=== PATIENT | female | born 1985 | race Caucasian/White ===

== ENCOUNTER 2022-02-26 12:24 | Inpatient (IN) ==
[2022-02-26] MEDS ORDERED: LACTATED RINGER'S 1,000 ML IV PRN (13:07)
[2022-02-26] MEDS ORDERED: OXYTOCIN 30 UNITS/500 ML BAG IV PRN (13:07)
--- NOTE | 2022-02-26 13:11 | History & Physical Report ---
Date of Service February 26, 2022 Assessment & Plan (1) Supervision of elderly multigravida: Plan: spont labor, admit. PCN History of Present Illness Primary Care Provider: Elana Saavedra MD STEPHANIE Calculator Estimated Delivery Date Method Current WG Current Estimate 02/26/22 LMP (Certain) 39w 5d LMP: 05/22/21 : 6 Full term: 3 Premature: 0 Total Number of Induced Abortions: 0 Total Number of Spontaneous Abortions: 2 Ectopics: 0 Multiple births: 0 Number of Living Children: 3 and Delivery Plans Covid Vaccine #1 02/13/21 (Pfizer) Covid Vaccine #2 03/06/21 AMA *weekly NST's @ 36wks. GBS Positive Urine -treat in LD Flu shot 07/24/21 IOL 03/05 if needed Allergies Allergy/AdvReac Type Severity Reaction Status Date / Time No Known Allergies Allergy Verified 02/24/22 09:25 Home Medications Medication Instructions Recorded Confirmed Type prenat.vits,clinton,[id number] 1 tab PO DAILY 07/22/21 02/26/22 History Patient History Medical History (Updated 07/25/21 @ 16:00 by Delmy Armenta MD, FACOG) Missed No known health problems Surgical History (Updated 07/22/21 @ 11:02 by Marcia Hylton) History of wisdom tooth extraction Family History Father Drug abuse Alcohol abuse Hypertension Grandfather (Maternal) Myocardial infarction Grandfather (Paternal) Myocardial infarction Uncle Prostate cancer Other No family history of adverse response to anesthesia Denies family history of Ovarian cancer Breast cancer Colorectal cancer Social History (Updated 07/22/21 @ 10:59 by Marcia Hylton) Smoking Status: Never smoker Second Hand Exposure: No; Hx Alcohol Use: No Hx Substance Use: No Preferred Language: Indonesian Communication Ability: Effective Visual Impairment: No Limitations Body Piercer Required: No Beliefs That Will Affect Care: None marital status: marital status details: Haroon (41) [phone] Current Living Situation: Alone Current Living Situation Comment: [facility] [facility], 1 dog. current occupational status: unemployed current occupation: HOMEMAKER Feels Safe at Home: Yes Safety Concerns: Feels Safe At This Time Childhood Exposure to Second-Hand Smoke: No Dental Care, Regularly: Yes Physical Activity Frequency: Daily Assistive Devices: None Results & Data ([facility]) Vital Signs (Past 12 Hours) Vital Signs Temp Pulse Resp BP 02/26/22 13:01 77 125/84 02/26/22 12:47 80 140/83 02/26/22 12:41 97.7 F 20 Coding Level of Care Code None Diagnoses Supervision of elderly multigravida O09.529
[2022-02-26] MEDS ORDERED: PENICILLIN G POTASSIUM 6 MU in DEXTROSE 5% 250 ML IV STA (13:25)
[2022-02-26 13:26] LABS: Hematocrit (blood only) 37.5 % (37-47); Mean Corpuscular Hemoglobin 31.4 pg (25-34); Mean Corpuscular Hgb Conc 34.7 g/dL (32-36); Mean Corpuscular Volume 90.6 fL (80-100); Mean Platelet Volume 10.3 fL (7.4-10.4); Platelet Count 199 K/uL (130-400); RDW Standard Deviation 42.9 fL (36.4-46.3); Red Blood Count 4.14 M/uL (4.2-5.4); White Blood Count 10.16 K/uL (4.8-10.8)
[2022-02-26] MEDS ORDERED: PENICILLIN G POTASSIUM 3 MU in DEXTROSE 5% 100 ML IV PRN (16:07)
[2022-02-26] MEDS: OXYTOCIN 30 UNITS/500 ML BAG IV PRN ×2 (16:18→17:15)
[2022-02-26] MEDS ORDERED: ACETAMINOPHEN 325 MG TAB PO PRN (16:51)
[2022-02-26] MEDS ORDERED: bisacodyL 10 MG SUPP PR PRN (16:51)
[2022-02-26] MEDS ORDERED: BENZOCAINE 20% AER SPR 82.5 GM CAN EXT PRN (16:51)
[2022-02-26] MEDS ORDERED: HYDROCORTISONE ACETATE 25 MG SUPP PR PRN (16:51)
[2022-02-26] MEDS ORDERED: miSOPROStoL 200 MCG TAB ONE (17:35)
--- NOTE | 2022-02-26 17:42 | Delivery Summary ---
Vaginal Delivery Summary Date of Service February 26, 2022 Vaginal Delivery Summary Spontaneous vaginal delivery the patient delivered precipitously at delivering the head on her own nursing was in attendance as was diet but baby was born into the bed Betzaida Yi was able to help as well and once gloves were on I was able to assess baby cord was clamped. Fluid was clear baby was vigorous live vigorous female assessed for lacerations there were none placenta was removed with gentle traction IV Pitocin started She did have a hemorrhage of approximately an additional 300 cc Pitocin was increased and then rectal Cytotec was given total blood loss was 500 cc sponge and instrument counts correct
[2022-02-26] MEDS: IBUPROFEN 600 MG TAB PO PRN (18:59)
[2022-02-26] MEDS: DOCUSATE SODIUM 100 MG CAP PO SCH (21:00)
[2022-02-27 06:36] LABS: Hematocrit (blood only) 34.9 % (37-47); Mean Corpuscular Hemoglobin 31.3 pg (25-34); Mean Corpuscular Hgb Conc 34.4 g/dL (32-36); Mean Corpuscular Volume 90.9 fL (80-100); Mean Platelet Volume 10.2 fL (7.4-10.4); Platelet Count 182 K/uL (130-400); RDW Standard Deviation 43.1 fL (36.4-46.3); Red Blood Count 3.84 M/uL (4.2-5.4); White Blood Count 12.04 K/uL (4.8-10.8)
--- NOTE | 2022-02-27 07:34 | Obstetrical Progress Note ---
Date of Service February 27, 2022 Assessment & Plan (1) Supervision of elderly multigravida: Day #1 patient is an uncomplicated delivery and wishes to go home later today she is ambulating well she has no extremity pain no depression instructions reviewed we will plan on later at 23 hours Subjective Ambulation: ambulating normally Voiding: no voiding problems Passing Gas:: Yes Diet Tolerance:: regular diet Results & Data ([facility]) Vital Signs (Past 12 Hours) Vital Signs Temp Pulse Resp BP Pulse Ox 02/27/22 03:50 98.6 F 56 L 16 115/72 97 02/27/22 00:15 98.8 F 56 L 14 127/70 99 02/26/22 20:15 99.3 F 66 16 118/67 97
[2022-02-27] MEDS ORDERED: PRENATAL VITAMIN 1 TAB PO SCH (08:00)
[2022-02-27] MEDS: IBUPROFEN 600 MG TAB PO PRN (08:59)
[2022-02-27] MEDS: DOCUSATE SODIUM 100 MG CAP PO SCH (08:59)
[2022-02-27] MEDS ORDERED: DIPHTHERIA/TETANUS/PERTUSSIS 0.5 ML SYR/VIAL IM ONE (09:00)
[2022-02-27] MEDS ORDERED: bisacodyL 5 MG TABEC PO SCH (20:00)
== END 2022-02-27 19:10 | disposition home or self-care (01) | DRG 807 ==
LOC: OPB 12:24 → 4S1 12:25 → 4E2 19:36

== ENCOUNTER 2023-11-04 16:09 | Inpatient (IN) ==
[2023-11-04 17:09] LABS: Basophils # (auto) 0.05 K/uL (0.00-0.20); Basophils % (auto) 0.5 %; Eosinophils # (auto) 0.03 K/uL (0.00-0.50); Eosinophils % (auto) 0.3 %; Hematocrit (blood only) 36.6 % (37.0-47.0); Hemoglobin 12.5 g/dl (12.0-16.0); Immature Granulocytes # (auto) 0.05 K/uL (0.01-0.20); Immature Granulocytes % (auto) 0.5 %; Lymphocytes # (auto) 2.05 K/uL (1.20-3.40); Lymphocytes % (auto) 20.4 %; Mean Corpuscular Hemoglobin 28.6 pg (25.0-34.0); Mean Corpuscular Hgb Conc 34.2 g/dL (32.0-36.0); Mean Corpuscular Volume 83.8 fL (80.0-100.0); Mean Platelet Volume 11.4 fL (9.4-12.4); Monocytes # (auto) 0.41 K/uL (0.11-0.59); Monocytes % (auto) 4.1 %; Neutrophils # (auto) 7.48 K/uL (1.40-6.50); Neutrophils % (auto) 74.2 %; Platelet Count 173 K/uL (130-400); RDW Coefficient of Variation 12.7 % (11.5-14.5); RDW Standard Deviation 38.2 fL (36.4-46.3); Red Blood Count 4.37 M/uL (4.20-5.40); White Blood Count 10.07 K/ul (4.8-10.8)
[2023-11-04] MEDS ORDERED: LIDOCAINE 1% LOCAL 20 ML VIAL INFIL PRN (17:23)
[2023-11-04] MEDS ORDERED: OXYTOCIN 30 UNITS/NSS 30 UNITS/500 ML BAG IV PRN ×2 (17:23→18:26)
[2023-11-04 17:25] LABS: Albumin Globulin Ratio 1.2 (0.9-2); Albumin Level 3.5 gm/dl (3.4-5.0); BUN Creatinine Ratio 13.9 (10-20); Bilirubin,Total 0.3 mg/dl (0.2-1.0); Calcium 8.7 mg/dl (8.6-10.3); Creatinine Clr Calc Pharmacy 95.6 ml/min; Est GFR (African American) 108.5 ml/min; Est GFR (Non-African American) 93.6 ml/min; Potassium 3.8 mmol/L (3.5-5.1); Total Protein 6.5 gm/dl (6.0-8.3)
[2023-11-04 17:39] LABS: Creatinine Urine Random 53.8 mg/dl; Protein Creatinine Ratio Urine 0.3 (0-0.2)
[2023-11-04] MEDS ORDERED: PENICILLIN GK 6 MU in DEXTROSE 5% 250 ML IV ONE (17:45)
[2023-11-04] MEDS ORDERED: MAG SULFATE 4GM BOLUS FROM BAG IV ONE (18:26)
--- NOTE | 2023-11-04 19:03 | History & Physical Report ---
Date of Service November 04, 2023 Assessment & Plan (1) Pre-eclampsia affecting , antepartum: Plan: IUP at 40 weeks with pre-eclampsia will begin MgS04 and pitocin induction will AROM after 2nd dose of PCN is starting to infuse anticipate vaginal History of Present Illness Primary Care Provider: NO PCP Patient is a 38 yo who presents to L&D for evaluation of elevated BP noted on routine OB visit today. she denies any PIH symptoms. BP remains elevated on admission. PIH labs are all normal but protein creatinine ratio is elevated at 0.3. complicated by AMA . testing has been reassuring. GBS -positive Allergies Allergy/AdvReac Type Severity Reaction Status Date / Time No Known Allergies Allergy Verified 11/04/23 17:19 Home Medications Medication Instructions Recorded Confirmed Type prenat.vits,clinton,[id number] 1 tab PO DAILY 07/22/21 11/04/23 History Patient History Medical History (Updated 11/04/23 @ 19:19 by Justine Caba MD, FACOG) History of chicken pox Carrier of group B Streptococcus Missed No known health problems Supervision of elderly multigravida Surgical History S/P dilatation and curettage History of wisdom tooth extraction Family History Father Drug abuse Alcohol abuse Hypertension Grandfather (Maternal) Myocardial infarction Grandfather (Paternal) Myocardial infarction Uncle Prostate cancer Other No family history of adverse response to anesthesia Denies family history of Ovarian cancer Breast cancer Colorectal cancer Social History Smoking Status: Never smoker Second Hand Exposure: No; Do You Dip or Chew Tobacco: No; Hx Alcohol Use: No Hx Substance Use: No Preferred Language: Swedish Communication Ability: Effective Visual Impairment: No Limitations Iron Miner Required: No Beliefs That Will Affect Care: None marital status: marital status details: Haroon Kuhn (42) [phone] Current Living Situation: Family Current Living Situation Comment: [employer], 1 dog. current occupational status: unemployed current occupation: HOMEMAKER Other Information That Helps Us Care for You: No Feels Safe at Home: Yes Safety Concerns: Feels Safe At This Time Childhood Exposure to Second-Hand Smoke: No Dental Care, Regularly: Yes Physical Activity Frequency: Daily Assistive Devices: None Review of Systems All systems reviewed & are unremarkable except as noted in HPI & below Physical Exam Constitutional: WD/WN, vitals as above Psychiatric: A+Ox3, euthymic affect Genitourinary: OB Exam Abdomen: + vertex, + estimated weight (6-7 pounds) and + regular contractions (mild- 3-4 Qminutes) Manual OB Exam: + cervical dilation (2-3cm), + cervical effacement 70% and + station -2 OB Exam Monitor Tracing: + external FHT monitor used, + external uterine monitor used, + category I and + normal FHT variability Results & Data Vital Signs (Past 12 Hours) Vital Signs Temp Pulse Resp BP 11/04/23 18:50 75 148/81 H 11/04/23 18:43 74 156/84 H 11/04/23 18:31 77 156/87 H 11/04/23 18:12 76 175/84 H 11/04/23 18:00 77 150/93 H 11/04/23 17:50 80 143/86 H 11/04/23 17:40 75 155/87 H 11/04/23 17:31 66 163/87 H 11/04/23 17:20 69 165/93 H 11/04/23 17:11 68 163/90 H 11/04/23 16:54 76 166/95 H 11/04/23 16:38 97.5 F L 18 11/04/23 16:30 76 177/91 H Code Status & VTE Plan VTE Prophylaxis Plan VTE Prophylaxis will be ordered: No Coding Level of Care Code None Diagnoses Pre-eclampsia affecting , antepartum O14.90
[2023-11-04] MEDS: MAGNESIUM SULFATE / WTR 40 GM/1,000 ML BAG IV SCH (19:06)
[2023-11-04] MEDS: LACTATED RINGER'S 1,000 ML IV PRN (19:09)
[2023-11-04] MEDS ORDERED: PENICILLIN GK 3 MU in DEXTROSE 5% 100 ML IV PRN (20:23)
[2023-11-05] MEDS ORDERED: oxyCODONE/ACETAMINOPHEN 5mg/325mg TAB PO PRN (03:28)
[2023-11-05] MEDS ORDERED: ACETAMINOPHEN 325 MG TAB PO PRN (03:28)
[2023-11-05] MEDS ORDERED: BENZOCAINE 20% SPRY 85 APPLN/85 GM CAN EXT PRN (03:28)
[2023-11-05] MEDS ORDERED: HYDROCORTISONE ACETATE 25 MG SUPP PR PRN (03:28)
[2023-11-05] MEDS ORDERED: OXYTOCIN 30 UNITS/NSS 30 UNITS/500 ML BAG IV PRN (03:28)
[2023-11-05] MEDS ORDERED: DIPHTHERIA/TETANUS/PERTUSSIS Vaccine (Tdap, Age 7+yrs) 0.5mL SYR/VL IM ONE (03:28)
[2023-11-05 03:30] LABS: Albumin Globulin Ratio 1.2 (0.9-2); Albumin Level 3.6 gm/dl (3.4-5.0); BUN Creatinine Ratio 15.9 (10-20); Basophils # (auto) 0.05 K/uL (0.00-0.20); Basophils % (auto) 0.3 %; Bilirubin,Total 0.3 mg/dl (0.2-1.0); Calcium 7.3 mg/dl (8.6-10.3); Creatinine Clr Calc Pharmacy 109.4 ml/min; Eosinophils # (auto) 0.02 K/uL (0.00-0.50); Eosinophils % (auto) 0.1 %; Est GFR (African American) 126.2 ml/min; Est GFR (Non-African American) 108.9 ml/min; Globulin 3.1 gm/dl (2.5-4.0); Hematocrit (blood only) 36.1 % (37.0-47.0); Hemoglobin 12.5 g/dl (12.0-16.0); Immature Granulocytes % (auto) 0.7 %; Lymphocytes # (auto) 1.84 K/uL (1.20-3.40); Lymphocytes % (auto) 12.8 %; Mean Corpuscular Hgb Conc 34.6 g/dL (32.0-36.0); Mean Corpuscular Volume 83.8 fL (80.0-100.0); Mean Platelet Volume 11.5 fL (9.4-12.4); Monocytes # (auto) 0.65 K/uL (0.11-0.59); Monocytes % (auto) 4.5 %; Neutrophils # (auto) 11.75 K/uL (1.40-6.50); Neutrophils % (auto) 81.6 %; Platelet Count 188 K/uL (130-400); Potassium 3.9 mmol/L (3.5-5.1); RDW Coefficient of Variation 12.6 % (11.5-14.5); RDW Standard Deviation 38.4 fL (36.4-46.3); Red Blood Count 4.31 M/uL (4.20-5.40); Total Protein 6.7 gm/dl (6.0-8.3); White Blood Count 14.41 K/ul (4.8-10.8)
--- NOTE | 2023-11-05 03:32 | Delivery Summary ---
Vaginal Delivery Summary Date of Service November 05, 2023 Vaginal Delivery Summary Patient is a 38-year-old 7 para 4-0-2-4 female EDC of 11/04/2023 who presented for induction of labor because of elevated blood pressures in the office. Incidentally she was scheduled to be induced on 11/04/2023 because of advanced maternal age protocol. PIH labs were within normal limits except protein creatinine ratio was elevated at 0.3. Magnesium sulfate infusion was begun after 4 g bolus. Pitocin induction was also begun per protocol. Just before she received her second dose of penicillin for group B strep prophylaxis, membranes were ruptured for clear fluid. She progressed to full dilation with an urge to push. The head delivered before I could get to the room but Nora Boss RN was present at the . There was a tight nuchal cord which was clamped and cut prior to my arrival. I delivered the shoulders and the rest the with ease. The was vigorous crying and moving all 4 limbs. He was placed on the mother's abdomen for further attention and drying. After cord blood was obtained, the placenta was expressed intact with a three-vessel cord. Perineum was intact. bleeding was controlled with dilute Pitocin and fundal massage. Estimated blood loss 200 cc. A Ram catheter was placed using sterile technique after the delivery per protocol on magnesium sulfate. Mother and were doing well after delivery. [facility] [place] Vaginal Delivery Charge Delivery Type Details: [facility]
[2023-11-05] MEDS: IBUPROFEN 600 MG TAB PO PRN ×3 (05:15→20:18)
--- NOTE | 2023-11-05 07:55 | Obstetrical Progress Note ---
Date of Service November 05, 2023 Assessment & Plan (1) Encounter for care and examination after delivery: continue MgSO4 for at least 12 hours BP's have now normalized labs all still WNL Subjective Voiding: hwang catheter in place Passing Gas:: Yes Diet Tolerance:: regular diet Lochia:: Small Feeding Type:: breast feeding currently no PIH symptoms Review of Systems All systems reviewed & are unremarkable except as noted in HPI & below Physical Exam Constitutional WD/WN, vitals as above Psychiatric A+Ox3, euthymic affect Genitourinary OB Exam Abdomen: + fundal height Fundus: + firm and + relation to umbilicus (@U) Results & Data Vital Signs (Past 12 Hours) Vital Signs Temp Pulse Resp BP O2 Del Method 11/05/23 07:47 97.9 F 18 11/05/23 07:37 88 137/72 11/05/23 07:30 18 11/05/23 06:37 87 109/62 11/05/23 06:03 85 136/74 11/05/23 06:00 18 11/05/23 05:26 90 131/76 11/05/23 05:15 18 11/05/23 05:15 98.1 F 18 Room Air 11/05/23 05:11 83 124/70 11/05/23 04:56 93 H 153/84 H 11/05/23 04:41 76 135/81 11/05/23 04:26 84 138/84 11/05/23 04:15 18 11/05/23 04:11 76 130/74 11/05/23 03:56 77 135/65 11/05/23 03:45 98.1 F 18 11/05/23 03:45 18 11/05/23 03:41 81 165/80 H 11/05/23 03:27 98 H 168/82 H 11/05/23 03:11 85 146/70 H 11/05/23 03:07 20 11/05/23 03:00 80 135/84 11/05/23 02:41 81 142/78 H 11/05/23 02:30 18 11/05/23 02:30 18 11/05/23 02:26 69 142/87 H 11/05/23 02:13 72 140/72 11/05/23 01:41 60 139/83 11/05/23 01:28 66 134/77 11/05/23 01:00 18 11/05/23 01:00 97.7 F 18 11/05/23 00:51 68 134/77 11/05/23 00:36 68 150/80 H 11/05/23 00:20 77 136/81 11/05/23 00:06 92 H 142/84 H 11/05/23 00:00 18 11/05/23 00:00 18 11/04/23 23:49 95 H 143/80 H 11/04/23 23:35 84 149/81 H 11/04/23 23:19 87 151/86 H 11/04/23 23:05 80 152/86 H 11/04/23 23:00 18 11/04/23 23:00 18 11/04/23 23:00 18 11/04/23 23:00 98.1 F 18 11/04/23 22:50 82 139/81 11/04/23 22:30 18 11/04/23 22:30 20 11/04/23 22:30 20 11/04/23 22:20 84 157/91 H 11/04/23 22:04 91 H 162/74 H 11/04/23 21:49 81 163/82 H 11/04/23 21:34 80 156/82 H 11/04/23 21:20 75 156/84 H 11/04/23 21:05 83 147/95 H 11/04/23 20:50 79 155/81 H 11/04/23 20:36 87 185/100 H 11/04/23 20:20 72 143/87 H 11/04/23 20:05 75 172/91 H 11/04/23 19:58 18
[2023-11-05] MEDS: PRENATAL VITAMIN 1 TAB PO SCH (08:31)
[2023-11-05] MEDS: DOCUSATE SODIUM 100 MG CAP PO SCH ×2 (08:31→21:19)
[2023-11-05] MEDS: LACTATED RINGER'S 1,000 ML IV PRN (11:17)
[2023-11-05 11:24] LABS: Albumin Globulin Ratio 1.2 (0.9-2); Albumin Level 3.2 gm/dl (3.4-5.0); BUN Creatinine Ratio 11.8 (10-20); Bilirubin,Total 0.2 mg/dl (0.2-1.0); Creatinine Clr Calc Pharmacy 88.8 ml/min; Est GFR (African American) 99.3 ml/min; Est GFR (Non-African American) 85.7 ml/min; Globulin 2.7 gm/dl (2.5-4.0); Potassium 4.4 mmol/L (3.5-5.1); Total Protein 5.9 gm/dl (6.0-8.3)
--- NOTE | 2023-11-05 13:06 | Communication Note ---
Date of Service: November 05, 2023 Pt notified nursing that was having some vision changes i nthe form of difficulty focusing. Got a little bit of sleep but not much. Denies VALDOVINOS, CP, SOB/RUQ pain. Most recent cmp 1 hr ago was wnl. Suspect this is related to mag and fatigue but will get mag level to check
[2023-11-05] MEDS: MAGNESIUM SULFATE / WTR 40 GM/1,000 ML BAG IV SCH (13:34)
[2023-11-05] MEDS ORDERED: LABETALOL HCL 200 MG TAB PO SCH (21:15)
[2023-11-06 07:43] LABS: Hematocrit (blood only) 32.3 % (37.0-47.0); Hemoglobin 10.4 g/dl (12.0-16.0); Mean Corpuscular Hemoglobin 28.1 pg (25.0-34.0); Mean Corpuscular Hgb Conc 32.2 g/dL (32.0-36.0); Mean Corpuscular Volume 87.3 fL (80.0-100.0); Mean Platelet Volume 10.9 fL (9.4-12.4); Platelet Count 178 K/uL (130-400); RDW Coefficient of Variation 13.1 % (11.5-14.5); White Blood Count 9.53 K/ul (4.8-10.8)
[2023-11-06] MEDS: IBUPROFEN 600 MG TAB PO PRN ×3 (08:15→20:27)
[2023-11-06] MEDS: DOCUSATE SODIUM 100 MG CAP PO SCH ×2 (08:15→20:18)
[2023-11-06] MEDS: PRENATAL VITAMIN 1 TAB PO SCH (08:15)
--- NOTE | 2023-11-06 08:53 | Obstetrical Progress Note ---
Date of Service November 06, 2023 Assessment & Plan (1) Encounter for care and examination after delivery: Crystal is a 38-year-old G1 status post vaginal delivery. and delivery course complicated by severe preeclampsia status post 24 hours of magnesium. Patient doing well denies any preeclampsia symptoms. Was initially started on labetalol yesterday evening. However blood pressures overnight were borderline low and labetalol discontinued for this morning's dose. Will con tinue to monitor blood pressures and for preeclampsia symptoms. Discussed discharge plan. Patient was preferring discharge today if there are no concerns for blood pressure or worsening preeclampsia. Discussed that we will continue to monitor for at least 12 hours post stoppage of magnesium and will reassess at that point. Patient will let us know if she would like to go home after the 12-hours are up (2) Pre-eclampsia affecting , antepartum: Subjective Voiding: hwang catheter in place Passing Gas:: Yes Diet Tolerance:: regular diet Lochia:: Small Feeding Type:: breast feeding Denies preeclampsia symptoms Review of Systems All systems reviewed & are unremarkable except as noted in HPI & below Physical Exam Constitutional WD/WN, vitals as above Respiratory normal respiratory effort; no respiratory distress and no labored breathing Gastrointestinal (Abdomen) Inspection/Auscultation: abdomen normal to inspection; abdomen not distended Percussion/Palpation: abdomen soft; abdomen nontender Genitourinary OB Exam Abdomen: + fundal height Fundus: + firm and + relation to umbilicus (Below); not tender or not boggy Results & Data Vital Signs (Past 12 Hours) Vital Signs Temp Pulse Pulse Resp BP BP Pulse Ox 11/06/23 07:20 36.6 C 70 18 118/74 95 11/06/23 03:51 70 126/71 11/06/23 03:15 18 11/06/23 03:15 36.6 C 18 11/06/23 02:43 69 108/62 11/06/23 02:19 69 100/59 L 11/06/23 01:49 65 97/55 L 11/06/23 01:45 16 11/06/23 01:25 75 L 11/06/23 01:25 123 H 11/06/23 01:25 118 H 76 L 11/06/23 01:19 65 96/52 L 11/06/23 00:49 61 91/55 L 11/06/23 00:45 18 11/06/23 00:33 90 83 L 11/06/23 00:19 67 97/54 L 11/06/23 00:08 69 85 L 11/06/23 00:05 90 89 L 11/06/23 00:03 73 92 11/05/23 23:58 70 92 11/05/23 23:53 92 11/05/23 23:53 71 11/05/23 23:53 74 93 11/05/23 23:49 70 103/56 L 11/05/23 23:48 75 95 11/05/23 23:47 80 93 11/05/23 23:43 69 92 11/05/23 23:40 67 93 11/05/23 23:38 69 95 11/05/23 23:33 70 96 11/05/23 23:28 69 96 11/05/23 23:23 76 96 11/05/23 23:19 68 109/59 L 11/05/23 23:18 71 96 11/05/23 23:15 37.2 C 18 11/05/23 23:15 18 11/05/23 23:14 75 94 11/05/23 23:13 74 93 11/05/23 23:08 68 93 11/05/23 23:06 77 94 11/05/23 23:03 72 93 11/05/23 22:58 95 11/05/23 22:58 70 11/05/23 22:58 71 94 11/05/23 22:53 74 97 11/05/23 22:49 65 120/63 11/05/23 22:48 70 97 11/05/23 22:45 18 11/05/23 22:43 71 95 11/05/23 22:41 71 94 11/05/23 22:38 70 96 11/05/23 22:36 88 93 11/05/23 22:33 80 97 11/05/23 22:28 71 93 11/05/23 22:23 76 96 11/05/23 22:19 68 144/72 H 11/05/23 22:18 77 96 11/05/23 22:13 79 97 11/05/23 22:08 79 97 11/05/23 22:03 77 97 11/05/23 21:58 79 97 11/05/23 21:53 83 96 11/05/23 21:49 72 158/88 H 11/05/23 21:48 73 96 11/05/23 21:45 18 11/05/23 21:43 77 97 11/05/23 21:38 71 98 11/05/23 21:33 78 97 11/05/23 21:28 70 98 11/05/23 21:23 72 96 11/05/23 21:18 77 96 11/05/23 21:13 71 97 11/05/23 21:08 95 11/05/23 21:08 71 11/05/23 21:08 71 163/83 H 94 11/05/23 21:03 70 96 11/05/23 20:58 69 96 11/05/23 20:53 66 97 O2 Del Method 11/06/23 07:20 Room Air 11/06/23 03:51 11/06/23 03:15 11/06/23 03:15 11/06/23 02:43 11/06/23 02:19 11/06/23 01:49 11/06/23 01:45 11/06/23 01:25 11/06/23 01:25 11/06/23 01:25 11/06/23 01:19 11/06/23 00:49 11/06/23 00:45 11/06/23 00:33 11/06/23 00:19 11/06/23 00:08 11/06/23 00:05 11/06/23 00:03 11/05/23 23:58 11/05/23 23:53 11/05/23 23:53 11/05/23 23:53 11/05/23 23:49 11/05/23 23:48 11/05/23 23:47 11/05/23 23:43 11/05/23 23:40 11/05/23 23:38 11/05/23 23:33 11/05/23 23:28 11/05/23 23:23 11/05/23 23:19 11/05/23 23:18 11/05/23 23:15 11/05/23 23:15 11/05/23 23:14 11/05/23 23:13 11/05/23 23:08 11/05/23 23:06 11/05/23 23:03 11/05/23 22:58 11/05/23 22:58 11/05/23 22:58 11/05/23 22:53 11/05/23 22:49 11/05/23 22:48 11/05/23 22:45 11/05/23 22:43 11/05/23 22:41 11/05/23 22:38 11/05/23 22:36 11/05/23 22:33 11/05/23 22:28 11/05/23 22:23 11/05/23 22:19 11/05/23 22:18 11/05/23 22:13 11/05/23 22:08 11/05/23 22:03 11/05/23 21:58 11/05/23 21:53 11/05/23 21:49 11/05/23 21:48 11/05/23 21:45 11/05/23 21:43 11/05/23 21:38 11/05/23 21:33 11/05/23 21:28 11/05/23 21:23 11/05/23 21:18 11/05/23 21:13 11/05/23 21:08 11/05/23 21:08 11/05/23 21:08 11/05/23 21:03 11/05/23 20:58 11/05/23 20:53
[2023-11-06] MEDS ORDERED: LABETALOL HCL 100 MG TAB PO ONE (12:57)
[2023-11-06] MEDS ORDERED: bisacodyL 5 MG TABEC PO SCH (20:00)
[2023-11-06] MEDS: LABETALOL HCL 100 MG TAB PO SCH (22:12)
[2023-11-07] MEDS ORDERED: bisacodyL 10 MG SUPP PR PRN
[2023-11-07 06:57] LABS: Hematocrit (blood only) 32.2 % (37.0-47.0); Hemoglobin 10.5 g/dl (12.0-16.0)
--- NOTE | 2023-11-07 07:24 | Obstetrical Progress Note ---
Date of Service November 07, 2023 Assessment & Plan (1) Encounter for care and examination after delivery: (2) Pre-eclampsia affecting , antepartum: Plan 38 yo PP2 from , c/b pet w/ sf, doing well -Meeting all pp milestones -O+/rubella immune/ -f/u later this week for BP check. Started on lab 100mg PO BID due to elev BPs yesterday. Stable for dc home today Subjective Ambulation: ambulating normally Voiding: no voiding problems Passing Gas:: Yes Diet Tolerance:: regular diet Lochia:: Small Feeding Type:: breast feeding Pain well managed with medication Review of Systems Denies fevers, chills, n/v, VALDOVINOS, CP, SOB Physical Exam Constitutional WD/WN, vitals as above no acute distress Respiratory normal respiratory effort, lungs clear to auscultation Cardiovascular RRR, no murmur, no edema Gastrointestinal (Abdomen) Percussion/Palpation: abdomen soft; abdomen nontender fundus firm at umbilicus and NT Musculoskeletal BLE symmetric, nonerythematous, nontender Results & Data Vital Signs (Past 12 Hours) Vital Signs Temp Pulse Resp BP Pulse Ox O2 Del Method 11/07/23 03:50 137/84 11/07/23 00:47 127/73 11/06/23 23:36 98.1 F 53 L 18 159/79 H 96 Room Air 11/06/23 21:15 97.9 F 66 16 137/75 97 Room Air
[2023-11-07] MEDS: DOCUSATE SODIUM 100 MG CAP PO SCH (08:16)
[2023-11-07] MEDS: PRENATAL VITAMIN 1 TAB PO SCH (08:16)
[2023-11-07] MEDS: LABETALOL HCL 100 MG TAB PO SCH (08:17)
== END 2023-11-07 13:45 | disposition home or self-care (01) | DRG 807 ==
LOC: OPB 16:09 → 4S1 16:10 → 4E2 11-06 06:37